=== PATIENT | male | born 1965 | race Caucasian/White ===

== ENCOUNTER 2016-12-29 13:16 | Emergency (ER) | payer SELFPAY ==
[2016-12-29 13:27] VITALS: BP 135/76
--- NOTE | 2016-12-29 13:51 | EDM.PDOC ---
ED HPI GI/ABDOMINAL - General Chief Complaint: Gastrointestinal Problem Stated Complaint: CONSTIPATED Time Seen by Provider: 12/29/16 13:30 Source of Information: Reports: Patient, Family History Limitations: Reports: No limitations - History of Present Illness INITIAL COMMENTS - FREE TEXT/NARRATIVE: HISTORY AND PHYSICAL: History of present illness: [Patient comes to the emergency room complaining of constipation. His last bowel movement was 8 days ago. he regularly takes MiraLax daily as he takes narcotics for back pain. This is prescribed by a physician in [place]. He' s been doubling up on his MiraLax for the past 4 days. He drank one bottle of mag citrate which he vomited last night. He tried 2 enemas yesterday without results. He denies fever and chills. Generalized pain throughout his abdomen. No vomiting or nausea. No difficulty urinating. Chest pain shortness of breath or difficulty breathing. Has been passing gas without difficulty. He moved to [place] one week ago and has not yet established care with a local provider. Smokes regularly. ] Review of systems: As per history of present illness and below otherwise all systems reviewed and negative. Past medical history: As per history of present illness and as reviewed below otherwise noncontributory. Surgical history: As per history of present illness and as reviewed below otherwise noncontributory. Social history: No reported history of drug or alcohol abuse. Family history: As per history of present illness and as reviewed below otherwise noncontributory. Physical exam: General: Well-developed well-nourished male in no acute distress. Smells heavily of tobacco smoke. HEENT: Atraumatic, normocephalic. negative for conjunctival pallor or scleral icterus, mucous membranes moist, throat clear. neck supple, nontender. Lungs: Clear to auscultation, breath sounds equal bilaterally. Heart: S1S2, regular rate rhythm.. Abdomen: Bowel sounds are normoactive. Abdomen is Soft, nondistended, nontender. Negative for masses or hepatosplenomegaly. No guarding masses or rebound. Pelvis: Stable nontender. Genitourinary: Deferred. Rectal: Deferred. Extremities: Atraumatic, swelling or cyanosis feet or lower legs. Neurovascular unremarkable. Neuro: Awake, alert, oriented. Motor and sensory unremarkable throughout. Exam nonfocal. Diagnostics: [Abdominal x-ray] Therapeutics: [Soap Suds Enema] Impression: [Constipation, chronic narcotic use] Plan: [Discussed with patient that I could give him Zofran before he drank mag citrate. He admits that he hasn't had the best results with this in the past and would like a soap suds enema. He has great success with the enema. He denies any pain and fullness in his abdomen prior to discharge.. Colace twice a day to 3 times a day to keep stools soft. Recommend he establish care with a local PCP. All of his questions are answered and concerns are addressed.] Definitive disposition and diagnosis as appropriate pending reevaluation and review of above. - Related Data Allergies/ADRs: Allergies Allergy/AdvReac Type Severity Reaction Status Date / Time Unable to Assess Allergy Unverified 12/29/16 14:49 Home Meds: Home Meds ARIPiprazole [Abilify] 1 tab PO DAILY 12/29/16 [History] Gabapentin [Neurontin] 600 mg PO Q6H 12/29/16 [History] buPROPion HCl [Wellbutrin Xl] 1 tab PO DAILY 12/29/16 [History] ED ROS GENERAL - Review of Systems Review Of Systems: ROS reveals no pertinent complaints other than HPI. ED EXAM, GI/ABD - Physical Exam Exam: See Below Course - Vital Signs Last Recorded V/S: Last Vital Signs Temp 96.3 F 12/29/16 13:19 Pulse 92 12/29/16 13:19 Resp 16 12/29/16 13:19 BP 135/76 12/29/16 13:19 Pulse Ox 96 12/29/16 13:19 - Orders/Labs/Meds Orders: Active Orders 24 hr Category Date Time Status Abdomen 2V AP Flat Upright [CR] Stat Exams 12/29/16 13:31 Taken Meds: Medications Discontinued Medications Generic Name Dose Route Start Last Admin Trade Name Freq PRN Reason Stop Dose Admin Ondansetron HCl 4 mg 12/29/16 14:41 12/29/16 14:49 Zofran Odt PO 12/29/16 14:42 4 mg ONETIME ONE Administration Departure - Departure Time of Disposition: 16:00 Disposition: Home, Self-Care 01 Condition: good Clinical Impression: Constipation, Chronic narcotic use Forms: ED Department Discharge Additional Instructions: The following information is given to patients seen in the emergency department who are being discharged to home. This information is to outline your options for follow-up care. We provide all patients seen in our emergency department with a follow-up referral. The need for follow-up, as well as the timing and circumstances, are variable depending upon the specifics of your emergency department visit. If you don't have a primary care physician on staff, we will provide you with a referral. We always advise you to contact your personal physician following an emergency department visit to inform them of the circumstance of the visit and for follow-up with them and/or the need for any referrals to a consulting specialist. The emergency department will also refer you to a specialist when appropriate. This referral assures that you have the opportunity for follow-up care with a specialist. All of these measure are taken in an effort to provide you with optimal care, which includes your follow-up. Under all circumstances we always encourage you to contact your private physician who remains a resource for coordinating your care. When calling for follow-up care, please make the office aware that this follow-up is from your recent emergency room visit. If for any reason you are refused follow-up, please contact the [facility] emergency department at and asked to speak to the emergency department charge nurse. [facility] [address] [place] [id number] Establish care with a local primary care provider at the clinic listed above. Recommend Snow-Colace 2-3 times per day to keep stools loose. Return to ER as needed as discussed. - My Orders Last 24 Hours: My Active Orders 12/29/16 13:31 Abdomen 2V AP Flat Upright [CR] Stat - Assessment/Plan Last 24 Hours: My Active Orders 12/29/16 13:31 Abdomen 2V AP Flat Upright [CR] Stat
[2016-12-29] MEDS ORDERED: Ondansetron 4 MG Tab.DIS PO ONE (14:41)
--- NOTE | 2016-12-29 16:33 | CR ---
EXAM DATE: 12/29/16 PATIENT'S AGE: 51 Patient: DYLAN BLACK Facility: [place], [place] Site . Site : [id number] Study: XRay Abdomen [id number] 1:57:39 PM Ordering Physician: Doctor Mckay Final Report: CLINICAL INDICATION: Pain. Constipation for 8 days. Findings: There is a large volume of stool throughout the colon. The intestinal gas pattern is otherwise within normal limits. There is no free air under the diaphragm. The visualized lung bases are clear. Impression: Large colonic stool volume. Dictated by Darshan Hartley MD @ Dec 29 2016 2:22PM (Electronic Signature) Report Signed by Proxy and Original Signed Document filed in the Medical Record. RUDY
== END 2016-12-29 16:03 | disposition home or self-care (01) ==
LOC: MW.ED 13:16
DX: K59.00 Constipation, unspecified (principal); F11.90 Opioid use, unspecified, uncomplicated; F17.200 Nicotine dependence, unspecified, uncomplicated; Z79.899 Other long term (current) drug therapy
CPT/HCPCS: 74020; 99283; A9270

== ENCOUNTER 2017-01-08 16:08 | Emergency (ER) | payer SELFPAY ==
[2017-01-08 16:35] VITALS: BP 134/83
--- NOTE | 2017-01-08 16:48 | EDM.PDOC ---
ED HPI GENERAL MEDICAL PROBLEM - General Chief Complaint: General Stated Complaint: OUT OF MED Time Seen by Provider: 01/08/17 16:26 - History of Present Illness INITIAL COMMENTS - FREE TEXT/NARRATIVE: HISTORY AND PHYSICAL: History of present illness: The patient is a 51-year-old male who has no local provider as he is new to the area but has an appointment with [facility] at the end of the month and presents after he is running out of his bipolar medications and chronic pain meds. The patient has a long-standing history of bipolar and takes Wellbutrin XL and Abilify and takes the Neurontin and tramadol for his chronic disc disease pain. He has had no new injuries and has no new back pain no neurosensory changes no bowel or bladder disturbances no chest pain or shortness of breath fever chills. He says that he ran out several days ago and is feeling a little anxious but to not having these meds. Patient does drink a lot of caffeinated products and does smoke cigarettes but denies drug use The patient denies any new back pain or new symptomatology regarding his bipolar status Review of systems: As per history of present illness and below otherwise all systems reviewed and negative. Past medical history: As per history of present illness and as reviewed below otherwise noncontributory. Surgical history: As per history of present illness and as reviewed below otherwise noncontributory. Social history: No reported history of drug or alcohol abuse. Family history: As per history of present illness and as reviewed below otherwise noncontributory. Physical exam: General: Well-developed well nourished male who is somewhat anxious in the room but is speaking clearly and cooperative HEENT: Atraumatic, normocephalic, negative for conjunctival pallor or scleral icterus, mucous membranes moist, throat clear, neck supple, nontender, trachea midline. Lungs: Clear to auscultation, breath sounds equal bilaterally, chest nontender. Heart: S1S2, regular rhythm and slightly tachycardic rate on my evaluation, negative for clicks, rubs, or JVD. Abdomen: Soft, nondistended, nontender. NABS Genitourinary: Deferred. Rectal: Deferred. Extremities: Atraumatic, negative for cords or calf pain. Neurovascular unremarkable. Neuro: Awake, alert, oriented. Cranial nerves II through XII unremarkable. Cerebellum unremarkable. Motor and sensory unremarkable throughout. Exam nonfocal. Diagnostics: [] Therapeutics: [] I discussed with the patient that I could give him refills of his Wellbutrin Neurontin and Abilify and tramadol but only weeks for supply and I will give him referrals to our clinic Sinemet activity his followup regular rate and rhythm with [facility]. I've advised him to cut back on caffeine use try to eat a bland diet and push hydration. Impression: Medication refill Definitive disposition and diagnosis as appropriate pending reevaluation and review of above. back pain Pain Score (Numeric/FACES): 6 - Related Data Allergies Allergy/AdvReac Type Severity Reaction Status Date / Time lurasidone [From Latuda] Allergy Swelling Verified 01/08/17 16:30 risperidone [From Risperdal] Allergy Anxiety Verified 01/08/17 16:30 seizure meds Allergy Headache Uncoded 01/08/17 16:30 Home Meds: Home Meds ARIPiprazole [Abilify] 1 tab PO DAILY 12/29/16 [History] Gabapentin [Neurontin] 600 mg PO Q6H 12/29/16 [History] buPROPion HCl [Wellbutrin Xl] 1 tab PO DAILY 12/29/16 [History] Polyethylene Glycol 3350 [MiraLAX] 17 gm PO DAILY 01/08/17 [History] Past Medical History HEENT History: Reports: None Cardiovascular History: Reports: None Respiratory History: Reports: Pneumothorax Gastrointestinal History: Reports: Chronic constipation Genitourinary History: Reports: None Musculoskeletal History: Reports: Back pain, chronic Neurological History: Reports: Migraines Psychiatric History: Reports: Addiction, Bipolar, Depression, PTSD Hematologic History: Reports: None Immunologic History: Reports: None Oncologic (Cancer) History: Reports: None Dermatologic History: Reports: None - Infectious Disease History Infectious Disease History: Reports: Chicken pox - Past Surgical History Head Surgeries/Procedures: Reports: None GI Surgical History: Reports: Cholecystectomy Endocrine Surgical History: Reports: Thyroidectomy Social & Family History - Family History Family Medical History: Noncontributory - Tobacco Use Smoking Status *Q: Former Smoker Years of Tobacco use: 26 Packs/Tins Daily: 1 - Caffeine Use Caffeine Use: Reports: Coffee - Recreational Drug Use Recreational Drug Use: Yes Recreational Drug Type: Reports: Marijuana/Hashish Recreational Drug Use Frequency: Monthly ED ROS GENERAL - Review of Systems Review Of Systems: ROS reveals no pertinent complaints other than HPI. ED EXAM, GENERAL - Physical Exam Exam: See Below (See dictation) Course - Vital Signs Last Recorded V/S: Last Vital Signs Temp 36.6 C 01/08/17 16:31 Pulse 92 01/08/17 16:31 Resp 16 01/08/17 16:31 BP 134/83 01/08/17 16:31 Pulse Ox 98 01/08/17 16:31 Departure - Departure Time of Disposition: 16:48 Disposition: Home, Self-Care 01 Condition: good Clinical Impression: Encounter for medication refill Forms: ED Department Discharge Additional Instructions: The following information is given to patients seen in the emergency department who are being discharged to home. This information is to outline your options for follow-up care. We provide all patients seen in our emergency department with a follow-up referral. The need for follow-up, as well as the timing and circumstances, are variable depending upon the specifics of your emergency department visit. If you don't have a primary care physician on staff, we will provide you with a referral. We always advise you to contact your personal physician following an emergency department visit to inform them of the circumstance of the visit and for follow-up with them and/or the need for any referrals to a consulting specialist. The emergency department will also refer you to a specialist when appropriate. This referral assures that you have the opportunity for followup care with a specialist. All of these measure are taken in an effort to provide you with optimal care, which includes your followup. Under all circumstances we always encourage you to contact your private physician who remains a resource for coordinating your care. When calling for followup care, please make the office aware that this follow-up is from your recent emergency room visit. If for any reason you are refused follow-up, please contact the [facility] emergency department at and ask to speak to the emergency department charge nurse. [facility]- Internal Medicine and Family [address] [address] He takes medications as prescribed and please call and connect with our clinic or keep your appointment at [facility]. Return to ER as needed and as discussed
== END 2017-01-08 16:59 | disposition home or self-care (01) ==
LOC: MW.ED 16:08
DX: Z76.0 Encounter for issue of repeat prescription (principal); Z87.891 Personal history of nicotine dependence; F31.9 Bipolar disorder, unspecified; Z79.899 Other long term (current) drug therapy; Z88.8 Allergy status to other drugs, medicaments and biological substances
CPT/HCPCS: 99281